=== PATIENT | female | born 1960 | race Caucasian/White ===

== ENCOUNTER → 2016-11-01 | Outpatient (REF) | payer BC, OTHER ==
[~2016-11-01] MED LIST: ATN25T PO; LSNP10T PO; METF500T4 PO; SMV20T PO
== END ==
LOC: LAB 17:54
PROVIDERS: ATTEND Family Medicine
DX: E11.9 Type 2 diabetes mellitus without complications (principal)
CPT/HCPCS: 83036

== ENCOUNTER → 2017-01-30 | Outpatient (REF) | payer BC | LOC: LAB 16:50 | PROVIDERS: ATTEND Family Medicine | DX: E11.9 Type 2 diabetes mellitus without complications (principal) | CPT/HCPCS: 83036 ==